=== PATIENT | male | born 1990 ===

== ENCOUNTER 2017-08-17 22:21 | Emergency (ER) | payer SELFPAY ==
[2017-08-17 22:33] VITALS: BMI 26.6
[2017-08-17 22:36] VITALS: TEMP 98.2; O2SAT 97
--- NOTE | 2017-08-17 23:26 | C.PDOC ---
History Of Present Illness 27 years old male presents to ED with complaints of left lower back and right ring finger pain after a work related injury today. Patient states he was fixing a machine at work and fell from 2 feet high and landed on floor injuring his left low back and right ring finger. Denies LOC, head injury or any other physical complaints. Time Seen by Provider: 08/17/17 22:39 Chief Complaint (Nursing): Back Pain History Per: Patient History/Exam Limitations: no limitations Onset/Duration Of Symptoms: Hrs Current Symptoms Are (Timing): Still Present Previous Symptoms: None Associated Symptoms: None Exacerbating Factor(s): Nothing Recent travel outside of the [place]: No Past Medical History Reviewed: Historical Data, Nursing Documentation, Vital Signs Vital Signs: Last Vital Signs Temp 98.2 F 08/18/17 00:22 Pulse 76 08/18/17 00:22 Resp 15 08/18/17 00:22 BP 120/74 08/18/17 00:22 Pulse Ox 97 08/18/17 00:28 - Medical History PMH: No Chronic Diseases Surgical History: No Surg Hx Family History: States: No Known Family Hx - Social History Hx Alcohol Use: No Hx Substance Use: No - Immunization History Hx Tetanus Toxoid Vaccination: Yes Hx Influenza Vaccination: Yes Hx Pneumococcal Vaccination: Yes Review Of Systems Constitutional: Negative for: Fever, Chills Cardiovascular: Negative for: Chest Pain Respiratory: Negative for: Shortness of Breath Gastrointestinal: Negative for: Nausea, Vomiting, Abdominal Pain, Diarrhea Musculoskeletal: Positive for: Back Pain, Other (Right ring finger pain) Skin: Negative for: Rash Neurological: Negative for: Weakness, Numbness Physical Exam - Physical Exam Appears: Non-toxic, No Acute Distress Skin: Ecchymosis (of right distal aspect of 4th finger associated with swelling) Head: Atraumatic Eye(s): bilateral: Normal Inspection, PERRL Oral Mucosa: Moist Neck: No Midline Cervical Tenderness, No Paracervical Tenderness, Supple Chest: Symmetrical, No Tenderness Cardiovascular: Rhythm Regular Respiratory: No Decreased Breath Sounds Gastrointestinal/Abdominal: Soft, No Tenderness Back: No Straight Leg Raising, Other (Lt Paralumbar tenderness) Extremity: Normal ROM, No Deformity (4th right finger), Other (Straight leg raise) Extremity: Bilateral: Atraumatic Pulses: Left Dorsalis Pedis: Normal, Right Dorsalis Pedis: Normal Neurological/Psych: Oriented x3, Normal Speech, Normal Cognition, Normal Motor, Normal Sensation Gait: Steady ED Course And Treatment O2 Sat by Pulse Oximetry: 97 (RA) Pulse Ox Interpretation: Normal - Other Rad Ls X-Ray: Interpreted by Me, Viewed By Me Interpretation: no acute abn Rt hand X-Ray: Interpreted by Me Interpretation: No fx or dislocation Progress Note: Ordered right hand and LS Spine x-ray. Motin for pain. Pt placed in an aluminum finger splint for support and advised f/u with PMD or in clinic Reassessment Condition: Improved Disposition - Disposition Referrals: [facility] [Outside] Disposition: HOME/ ROUTINE Disposition Time: 00:10 Condition: STABLE Additional Instructions: Please follow up in clinic Take motrin for pain Return to ER if worse Prescriptions: Ibuprofen [Motrin] 600 mg PO Q6H #20 tab Instructions: Contusion (DC) Forms: [employer] (Hebrew), Work Excuse Print Language: MALDIVIAN - Clinical Impression Clinical Impression: Contusion, back, Finger contusion - PA / CERTIFIED NURSES' AIDE / Resident Statement MD/DO has reviewed & agrees with the documentation as recorded. - Scribe Statement The provider has reviewed the documentation as recorded by the Losibefe Clinton All medical record entries made by the Scribe were at my direction and personally dictated by me. I have reviewed the chart and agree that the record accurately reflects my personal performance of the history, physical exam, medical decision making, and the department course for this patient. I have also personally directed, reviewed, and agree with the discharge instructions and disposition.
[2017-08-18 00:37] VITALS: BP 120/74; PULSE 76; RESP 15
--- NOTE | 2017-08-18 11:22 | RAD ---
PROCEDURE: Right ring finger radiographs. HISTORY: pain, fall COMPARISON: None. TECHNIQUE: AP radiograph of the right hand, as well as spot oblique and lateral images of ring finger were obtained. FINDINGS: RIGHT RING FINGER: Normal right ring finger, without fracture or focal lesion. Remainder of the right hand (as seen on the AP view) grossly unremarkable. JOINTS: Normal. SOFT TISSUES: Tissue swelling noted at the 4th finger OTHER FINDINGS: None. IMPRESSION: No evidence of acute displaced fracture or dislocation. Soft tissue swelling.
--- NOTE | 2017-08-18 11:30 | RAD ---
PROCEDURE: Radiographs of the Lumbar Spine. HISTORY: pain, fall COMPARISON: No prior. FINDINGS: BONES: No evidence of acute fracture. There is approximately 3 millimeter anterior spondylolisthesis of L5 relative to S1 noted. DISC SPACES: Unremarkable. OTHER FINDINGS: None IMPRESSION: No radiographic evidence of acute fracture. Approximately 3 millimeter anterior spondylolisthesis of L5 relative to S1 noted.
== END 2017-08-18 01:04 | disposition home or self-care (01) ==
LOC: C.ER 22:21
DX: S60.041A Contusion of right ring finger without damage to nail, initial encounter (principal); S30.0XXA Contusion of lower back and pelvis, initial encounter; W17.89XA Other fall from one level to another, initial encounter; Y92.89 Other specified places as the place of occurrence of the external cause; Y99.0 Civilian activity done for income or pay